=== PATIENT | female | born 1995 | race Caucasian/White ===

== ENCOUNTER → 2023-09-02 | Outpatient (CLI) | payer BC ==
[2023-09-02 17:11] LABS: Basophils # (A) 0.04 X 10*3/uL (0.00-0.10); Basophils % (A) 0.5 %; Eosinophils # (A) 0.06 X 10*3/uL (0.04-0.35); Eosinophils % (A) 0.7 %; HCT 39.7 % (37.2-46.3); HGB 13.7 d/dL (12.0-15.0); Lymphocytes # (A) 2.37 X 10*3/uL (0.90-5.00); Lymphocytes % (A) 27.1 %; MCH 31.6 pg (27.0-32.0); MCHC 34.5 d/dL (32.0-37.0); MCV 91.7 FL (80.0-97.0); Mean Platelet Volume 11.4 FL (9.5-12.2); Monocytes # (A) 0.57 X 10*3/uL (0.20-1.00); Monocytes % (A) 6.5 %; NRBC Per 100 WBC 0 X 10*3/uL (0.00-0.01); Neutrophils # (A) 5.67 X 10*3/uL (1.80-7.70); Neutrophils % (A) 64.9 %; Platelet Count 239 X 10*3/uL (140-440); RBC 4.33 X 10*6/uL (4.10-5.20); RDW 11.8 % (11.5-14.5); WBC 8.74 X 10*3/uL (4.50-10.00)
== END | disposition home or self-care (01) ==
LOC: LABWHC1 09:26
PROVIDERS: ATTEND Family Medicine
DX: R61 Generalized hyperhidrosis (principal); R63.4 Abnormal weight loss
CPT/HCPCS: 36415; 84443; 84481; 85025

== ENCOUNTER → 2023-09-06 | Outpatient (CLI) | payer BC ==
--- NOTE | 2023-09-06 15:31 | US ---
EXAMINATION TYPE: US pelvis complete transvag DATE OF EXAM: 09/06/2023 COMPARISON: NONE CLINICAL INDICATION: Female, 28 years old with history of R10.2 PELVIC AND PERINEAL PAIN,N94.6; Inter mittent pelvic pain, irregular cycles TECHNIQUE: . Transabdominal sonographic images of the pelvis were acquired. Transvaginal sonographi c images were medically necessary to better assess the following anatomy: per patient's order Date of LMP: 09/04/2023 EXAM MEASUREMENTS: Uterus: 8.3 x 3.9 x 4.9 cm Endometrial Stripe: 0.6 cm Right Ovary: 2.7 x 2.4 x 2.2 cm Left Ovary: 3.1 x 1.7 x 2.8 cm 1. Uterus: anteverted 2. Endometrium: appears wnl 3. Right Ovary: wnl 4. Left Ovary: wnl 5. Bilateral Adnexa: wnl 6. Posterior cul-de-sac: wnl IMPRESSION: Negative
== END | disposition home or self-care (01) ==
LOC: RADUSWWP 14:48
PROVIDERS: ATTEND Family Medicine
DX: N94.6 Dysmenorrhea, unspecified (principal)
CPT/HCPCS: 76830; 76856